=== PATIENT | male | born 1970 | race Caucasian/White ===

== ENCOUNTER 2018-02-14 15:11 | Inpatient (IN) | payer OTHER ==
[2018-02-14 15:46] LABS: Basophils # (Auto) 0.1 K/mm3 (0.0-0.1); Basophils % (Auto) 0.9 % (0.0-1.8); Eosinophils # (Auto) 0.2 K/mm3 (0.0-0.4); Eosinophils % (Auto) 2.7 % (0.0-4.3); Hematocrit 44.8 % (35.5-45.6); Hemoglobin 15.4 gm/dl (11.8-15.2); Lymphocytes % (Auto) 44.3 % (13.4-35.0); Mean Corpuscular HGB Conc 34 % (32-34); Mean Corpuscular Hemoglobin 31 pg (28-32); Mean Corpuscular Volume 89 fl (84-94); Monocytes # (Auto) 0.6 K/mm3 (0.0-0.8); Monocytes % (Auto) 6.2 % (0.0-7.3); Platelet Count 244 K/mm3 (140-440); Red Blood Count 5.01 M/mm3 (3.65-5.03); Red Cell Distribution Width 13.5 % (13.2-15.2)
[2018-02-14 15:52] LABS: INR 0.8 (0.87-1.13)
[2018-02-14 15:53] LABS: Partial Thromboplastin Time 25.3 Sec. (24.2-36.6)
[2018-02-14 16:03] LABS: BUN/Creatinine Ratio 20; Blood Urea Nitrogen 12 mg/dL (9-20); Calcium 9.4 mg/dL (8.4-10.2); Hemolysis Index 9
--- NOTE | 2018-02-14 17:06 | Cat Scan Report ---
FINAL REPORT EXAM: CT HEAD/BRAIN WO CON HISTORY: neuro deficits < 6hrs or sx present upon awakening TECHNIQUE: CT examination of the head without IV contrast PRIORS: Brain MRI 11/16/[address] 11/15/2015 FINDINGS: Stable chronic infarcts bilateral occipital lobes posteriorly and medially. These are again associated with encephalomalacia and volume loss in the occipital lobes. No acute air-fluid level visualized in the included air-filled sinuses. Bone windows demonstrate no acute fracture. The brain is without mass, mass effect, hemorrhage, or acute infarct. There is no extra-axial intracranial bleed, brain bleed, or midline shift. The ventricles and sulci are age-appropriate. IMPRESSION: No acute CVA, intracranial bleed, or brain mass Stable chronic infarcts bilateral occipital lobe
--- NOTE | 2018-02-14 22:34 | Emergency Department Report ---
HPI - General Chief Complaint: Neuro Symptoms/Deficit Time Seen by Provider: 02/14/18 22:22 - HPI HPI: Room 24 The patient is a 47-year-old male presented with a chief complaint of left upper extremity weakness. The patient states today at approximately noon began feeling dizzy and had nausea vomiting and headache and intermittent weakness/ paralysis of the left upper extremity. Patient denies numbness, dysarthria or dysphagia. Patient states headache resolved at approximately 18:00. Patient states symptoms felt similar to his previous CVA 3 years ago. The patient states the only antiplatelet medication he takes is aspirin Location: [See above] Duration: [See above] Quality: Weakness Severity: Moderate Modifying factors: [see above] Context: [see above] Mode of transportation: [not driving] ED Past Medical Hx - Past Medical History Hx Hypertension: Yes Hx CVA: Yes Hx Diabetes: Yes (insulin-dependent) Additional medical history: high chol - Surgical History Past Surgical History?: No - Family History Family history: no significant - Social History Smoking Status: Never Smoker Substance Use Type: None - Medications Home Medications: Home Medications Medication Instructions Recorded Confirmed Last Taken Type Aspirin [Aspirin BABY CHEW TAB] 81 mg PO QDAY 11/16/15 11/16/15 11/15/15 History Insulin NPH/Regular [NovoLIN 70/30] 52 unit SQ QPM 11/16/15 11/16/15 11/15/15 History Insulin NPH/Regular [NovoLIN 70/30] 58 unit SQ QAM 11/16/15 11/16/15 11/15/15 History Lisinopril [Zestril TAB] 20 mg PO QDAY 11/16/15 11/16/15 11/15/15 History Metformin HCl [Glucophage] 1,000 mg PO BID 11/16/15 11/16/15 11/15/15 History Pravastatin Sodium [Pravastatin] 10 mg PO QHS 11/16/15 11/16/15 11/15/15 History predniSONE [Deltasone] 60 mg PO QDAY 6 Days tablet 11/17/15 Unknown Rx ED Review of Systems ROS: Stated complaint: SIGNS OF STROKE/PAIN Other details as noted in HPI Constitutional: denies: fever Eyes: denies: eye pain ENT: denies: throat pain Cardiovascular: denies: chest pain Endocrine: denies: unexplained weight loss Gastrointestinal: denies: abdominal pain Genitourinary: denies: dysuria Musculoskeletal: denies: back pain Skin: denies: change in color Neurological: headache, weakness. denies: paresthesias Physical Exam - Physical Exam Vital Signs: Vital Signs 02/14/18 02/14/18 15:18 21:00 Temperature 97.7 F Pulse Rate 81 Respiratory 16 Rate Blood Pressure 137/86 125/79 O2 Sat by Pulse 96 Oximetry Physical Exam: GENERAL: The patient is well-developed well-nourished male lying on stretcher not appearing to be in acute distress. [] HEENT: Normocephalic. Atraumatic. Extraocular motions are intact. Patient has moist mucous membranes. NECK: Supple. Trachea midline CHEST/LUNGS: Clear to auscultation. There is no respiratory distress noted. HEART/CARDIOVASCULAR: Regular. There is no tachycardia. There is no gallop rub or murmur. ABDOMEN: Abdomen is soft, nontender. Patient has normal bowel sounds. There is no abdominal distention. SKIN: There is no rash. There is no edema. There is no diaphoresis. NEURO: The patient is awake, alert, and oriented. The patient is cooperative. The patient has no focal neurologic deficits. The patient has normal speech. Cranial nerves II through XII grossly intact, no drift. Education Department Registrar 5+/5 bilaterally MUSCULOSKELETAL: There is no evidence of acute injury. NIHSS= 0 LOC a. Alert= 0 Not alert but arousable to minor stimuli=1 Not alert requires repeated or strong stimuli to move= 2 Responds only reflex motor or unresponsive=3 b. asks month and age answers both correctly= 0 answers one correctly= 1 answers neither correctly= 2 Best Gaze normal= 0 abnormal in one or both but forced deviation or total paresis absent= 1 forced deviation or total gaze paresis= 2 Visual no visual loss= 0 partial hemianopia= 1 complete hemianopia= 2 bilateral hemianopia= 3 Facial Palsy normal= 0 minor paralysis= 1 partial paralysis= 2 complete paralysis= 3 Motor Arm no drift= 0 drift before 10 secs but doesnt hit bed= 1 some effort against gravity= 2 no effort against gravity= 3 no movement= 4 Motor leg no drift= 0 drift before 5 secs but doesnt hit bed= 1 drifts to bed before 5 secs= 2 no effort against gravity= 3 no movement= 4 Limb ataxia absent=0 present in one limb= 1 present in two limbs= 2 Sensory normal= 0 mild sensory loss= 1 severe (unaware of being touched)= 2 Best language mild/some loss of fluency= 1 severe= 2 mute= 3 Dysarthria normal= 0 slurs some words= 1 severe/unintelligible= 2 Extinction and Inattention no abnormality= 0 visual, tactile, auditory or personal inattention= 1 profound (doesnt recognize own hand or orients to only one side= 2 ED Course Vital Signs 02/14/18 02/14/18 15:18 21:00 Temperature 97.7 F Pulse Rate 81 Respiratory 16 Rate Blood Pressure 137/86 125/79 O2 Sat by Pulse 96 Oximetry ED Medical Decision Making - Lab Data Result diagrams: 02/14/18 15:25 02/14/18 15:25 Laboratory Tests 02/14/18 02/14/18 02/14/18 15:20 15:25 15:25 WBC 9.1 RBC 5.01 Hgb 15.4 H Hct 44.8 MCV 89 MCH 31 MCHC 34 RDW 13.5 Plt Count 244 Lymph % (Auto) 44.3 H [place] % (Auto) 6.2 Eos % (Auto) 2.7 Baso % (Auto) 0.9 Lymph # 4.0 [place] # 0.6 Eos # 0.2 Baso # 0.1 Seg Neutrophils % 45.9 Seg Neutrophils # 4.2 PT 11.5 L INR 0.80 L APTT 25.3 Thrombin Time Sodium Potassium Chloride Carbon Dioxide Anion Gap BUN Creatinine Estimated GFR BUN/Creatinine Ratio Glucose POC Glucose 137 H Calcium Troponin T 02/14/18 02/14/18 15:25 15:25 WBC RBC Hgb Hct MCV MCH MCHC RDW Plt Count Lymph % (Auto) [place] % (Auto) Eos % (Auto) Baso % (Auto) Lymph # [place] # Eos # Baso # Seg Neutrophils % Seg Neutrophils # PT INR APTT Thrombin Time 17.8 Sodium 134 L Potassium 4.1 Chloride 97.9 L Carbon Dioxide 24 Anion Gap 16 BUN 12 Creatinine 0.6 L Estimated GFR > 60 BUN/Creatinine Ratio 20 Glucose 128 H POC Glucose Calcium 9.4 Troponin T < 0.010 - EKG Data -: EKG Interpreted by Nm EKG shows normal: sinus rhythm Rate: normal (86 bpm) - Radiology Data Radiology results: report reviewed (CT head), image reviewed (CT head) [facility] [address] [place] [address] Cat Scan Report Signed Patient: NICO FLYNN MR#: [id number] : 1970 Acct:[id number] Age/Sex: 47 / M ADM Date: 02/14/18 Loc: ED Attending Dr: Ordering Physician: VIRGIE SHERMAN MD Date of Service: 02/14/18 Procedure(s): CT head/brain wo con Accession Number(s): [id number] cc: ED MD WHIT FINAL REPORT EXAM: CT HEAD/BRAIN WO CON HISTORY: neuro deficits lt; 6hrs or sx present upon awakening TECHNIQUE: CT examination of the head without IV contrast PRIORS: Brain MRI 11/16/[address] 11/15/2015 FINDINGS: Stable chronic infarcts bilateral occipital lobes posteriorly and medially. These are again associated with encephalomalacia and volume loss in the occipital lobes. No acute air-fluid level visualized in the included air-filled sinuses. Bone windows demonstrate no acute fracture. The brain is without mass, mass effect, hemorrhage, or acute infarct. There is no extra-axial intracranial bleed, brain bleed, or midline shift. The ventricles and sulci are age-appropriate. IMPRESSION: No acute CVA, intracranial bleed, or brain mass Stable chronic infarcts bilateral occipital lobe Transcribed By: TORO Dictated By: AMMY CULLEN MD Electronically Authenticated By: AMMY CULLEN MD Signed Date/Time: 02/14/181700 DD/ 00 TD/TT: 02/14/181700 - Differential Diagnosis TIA Critical care attestation.: If time is entered above; I have spent that time in minutes in the direct care of this critically ill patient, excluding procedure time. ED Disposition Clinical Impression: TIA (transient ischemic attack) Disposition: OP ADMIT IP TO THIS HOSP Is pt being admited?: Yes Does the pt Need Aspirin: Yes Condition: Fair Referrals: PRIMARY CARE, [Primary Care Provider] - 3-5 Days Time of Disposition: 22:47 (hospitalist paged (Dr Chance))
[2018-02-14] MEDS ORDERED: ASPIRIN PO ONE (22:47)
[2018-02-15] MEDS ORDERED: SODIUM CHLORIDE FLUSH SYRINGE 10 ML IV PRN (00:56)
[2018-02-15] MEDS ORDERED: APRESOLINE IV PRN (00:56)
[2018-02-15] MEDS ORDERED: D50W (25GM) Syringe IV PRN (01:02)
--- NOTE | 2018-02-15 01:46 | History and Physical Report ---
History of Present Illness Date of examination: 02/15/18 Date of admission: 02/15/18 Chief complaint: Left arm weakness History of present illness: Patient is a 47 year old male with history of stroke, who presented to the ED on account of left arm weakness. Patient stated that when he woke up this morning and checked his blood sugar, it was elevated at 244. At that time , he gave himself insulin which did not improve his blood sugar. Subsequently, he started experiencing nausea without vomiting, dizziness, headaches, and blurry vision. In addition, he had left arm weakness lasting a few minutes 2 episodes. He denies slurred speech. No chest pain, shortness of breath, palpitations, cough or fever. No abdomen pain, constipation or diarrhea. No syncope or loss of consciousness. Past History Past Medical History: diabetes, hypertension, hyperlipidemia, stroke Past Surgical History: No surgical history Social history: no significant social history (he denies tobacco, alcohol or illicit drug use) Family history: diabetes, hypertension, stroke Medications and Allergies Allergies Allergy/AdvReac Type Severity Reaction Status Date / Time No Known Allergies Allergy Verified 11/14/14 11:55 Home Medications Medication Instructions Recorded Confirmed Last Taken Type Aspirin [Aspirin BABY CHEW TAB] 81 mg PO QDAY 11/16/15 11/16/15 11/15/15 History Insulin NPH/Regular [NovoLIN 70/30] 52 unit SQ QPM 11/16/15 11/16/15 11/15/15 History Insulin NPH/Regular [NovoLIN 70/30] 58 unit SQ QAM 11/16/15 11/16/15 11/15/15 History Lisinopril [Zestril TAB] 20 mg PO QDAY 11/16/15 11/16/15 11/15/15 History Metformin HCl [Glucophage] 1,000 mg PO BID 11/16/15 11/16/15 11/15/15 History Pravastatin Sodium [Pravastatin] 10 mg PO QHS 11/16/15 11/16/15 11/15/15 History predniSONE [Deltasone] 60 mg PO QDAY 6 Days tablet 11/17/15 Unknown Rx Active Meds: Active Medications Aspirin (Aspirin) 325 mg PO QDAY [facility] Atorvastatin Calcium (Lipitor) 40 mg PO QHS [facility] Dextrose (D50w (25gm) Syringe) 50 ml IV PRN PRN PRN Reason: Hypoglycemia Hydralazine HCl (Apresoline) 10 mg IV Q6H PRN PRN Reason: Keep SBP between 160-185 mm Hg Sodium Chloride (Nacl 0.9% 1000 Ml) 1,000 mls @ 75 mls/hr IV DIRECT KATHY Insulin Glargine (Lantus) 10 units SUB-Q QHS KATHY Insulin Human Lispro (Humalog) 0 unit SUB-Q ACHS KATHY; Protocol Sodium Chloride (Sodium Chloride Flush Syringe 10 Ml) 10 ml IV PRN PRN PRN Reason: LINE FLUSH Review of Systems All systems: negative (except as documented in the HPI, all other systems were reviewed and negative.) Exam - Constitutional Vitals: Temp Pulse Resp BP Pulse Ox 97.7 F 81 16 120/74 95 02/14/18 15:18 02/14/18 15:18 02/14/18 15:18 02/14/18 23:45 02/14/18 23:45 General appearance: Present: no acute distress - EENT Eyes: Present: PERRL, EOM intact ENT: hearing intact, clear oral mucosa - Neck Neck: Present: supple - Respiratory Respiratory effort: normal Respiratory: bilateral: CTA - Cardiovascular Rhythm: regular Heart Sounds: Present: S1 & S2 - Extremities Extremities: No edema Peripheral Pulses: within normal limits - Abdominal General gastrointestinal: Present: soft, non-tender, normal bowel sounds - Integumentary Integumentary: Present: clear, warm, dry - Musculoskeletal Musculoskeletal: strength equal bilaterally - Neurologic Neurologic: CNII-XII intact, other (alert and oriented 3) Results - Labs CBC & Chem 7: 02/14/18 15:25 02/14/18 15:25 Labs: Laboratory Last Values WBC 9.1 K/mm3 (4.5-11.0) 02/14/18 15:25 RBC 5.01 M/mm3 (3.65-5.03) 02/14/18 15:25 Hgb 15.4 gm/dl (11.8-15.2) H 02/14/18 15:25 Hct 44.8 % (35.5-45.6) 02/14/18 15:25 MCV 89 fl (84-94) 02/14/18 15:25 MCH 31 pg (28-32) 02/14/18 15:25 MCHC 34 % (32-34) 02/14/18 15:25 RDW 13.5 % (13.2-15.2) 02/14/18 15:25 Plt Count 244 K/mm3 (140-440) 02/14/18 15:25 Lymph % (Auto) 44.3 % (13.4-35.0) H 02/14/18 15:25 [place] % (Auto) 6.2 % (0.0-7.3) 02/14/18 15:25 Eos % (Auto) 2.7 % (0.0-4.3) 02/14/18 15:25 Baso % (Auto) 0.9 % (0.0-1.8) 02/14/18 15:25 Lymph # 4.0 K/mm3 (1.2-5.4) 02/14/18 15:25 [place] # 0.6 K/mm3 (0.0-0.8) 02/14/18 15:25 Eos # 0.2 K/mm3 (0.0-0.4) 02/14/18 15:25 Baso # 0.1 K/mm3 (0.0-0.1) 02/14/18 15:25 Seg Neutrophils % 45.9 % (40.0-70.0) 02/14/18 15:25 Seg Neutrophils # 4.2 K/mm3 (1.8-7.7) 02/14/18 15:25 PT 11.5 Sec. (12.2-14.9) L 02/14/18 15:25 INR 0.80 (0.87-1.13) L 02/14/18 15:25 APTT 25.3 Sec. (24.2-36.6) 02/14/18 15:25 Thrombin Time 17.8 Sec. (15.1-19.6) 02/14/18 15:25 Sodium 134 mmol/L (137-145) L 02/14/18 15:25 Potassium 4.1 mmol/L (3.6-5.0) 02/14/18 15:25 Chloride 97.9 mmol/L (98-107) L 02/14/18 15:25 Carbon Dioxide 24 mmol/L (22-30) 02/14/18 15:25 Anion Gap 16 mmol/L 02/14/18 15:25 BUN 12 mg/dL (9-20) 02/14/18 15:25 Creatinine 0.6 mg/dL (0.8-1.5) L 02/14/18 15:25 Estimated GFR > 60 ml/min 02/14/18 15:25 BUN/Creatinine Ratio 20 % 02/14/18 15:25 Glucose 128 mg/dL (75-100) H 02/14/18 15:25 POC Glucose 137 (70-105) H 02/14/18 15:20 Calcium 9.4 mg/dL (8.4-10.2) 02/14/18 15:25 Troponin T < 0.010 ng/mL (0.00-0.029) 02/14/18 15:25 Assessment and Plan Assessment and plan: TIA, rule out acute stroke. -Placed on stroke protocol -CT head negative for acute findings -Further evaluation with MRI brain, echocardiogram and carotid Doppler ultrasound Hypertension, stable -Resume home antihypertensive IDDM2 -Placed on both basal and prandial insulin regimen -Follow up hemoglobin A1c level Hyperlipidemia -Continue statin Mild hyponatremia -Will place patient on IV fluid and monitor sodium level Prophylaxis -DVT prophylaxis with SCD 38 minutes spent coordinating care
[2018-02-15] MEDS: NACL 0.9% 1000 ML 1,000 ML IV SCH ×2 (04:37→21:54)
[2018-02-15 08:11] LABS: BUN/Creatinine Ratio 17; Blood Urea Nitrogen 10 mg/dL (9-20); Calcium 8.8 mg/dL (8.4-10.2); Hemolysis Index 4
[2018-02-15] MEDS: HumaLOG SUB-Q SCH ×4 (09:02→22:41)
[2018-02-15] MEDS: ASPIRIN PO SCH (10:15)
--- NOTE | 2018-02-15 13:42 | Event Note ---
Date: 02/15/18 Patient was seen and evaluated this morning, H&P, labs and imaging were reviewed. Patient was admitted for TIA. Workup is in progress. PT OT ordered. Pravastatin is sensitive to Lipitor, Plavix is added on his aspirin regimen. Continue management per H&P.
--- NOTE | 2018-02-15 14:44 | Magnetic Resonance Report ---
MRI OF THE BRAIN WITHOUT CONTRAST: HISTORY: Stroke PROCEDURE: Multiplanar, multisequence MR imaging of the brain without IV contrast was performed. FINDINGS: Compared to the CT head without contrast dated 02/14/18. There is no evidence for diffusion restriction, hemorrhage or mass. A chronic right occipital infarct measures 2.9 x 1.8 cm. A smaller chronic left occipital infarct measures 1.5 x 1.6 cm. A left cerebellar chronic infarct measures 1.9 x 1.6 cm. There are 2 or 3 millimetric chronic infarcts in the right cerebellar hemisphere. A 1.5 x 0.8 cm chronic infarct is identified in the cerebellar vermis. Mild diffuse cortical volume loss and minimal nonspecific chronic white matter changes are identified. The remaining brain parenchyma is within normal limits. The midline structures are central. The basal cisterns are patent. Normal ventricular size. The orbital cavities and sella turcica demonstrate no abnormality. The visualized paranasal sinuses and mastoid air cells are well aerated. IMPRESSION: No acute intracranial process is identified. Multiple chronic infarcts in the posterior circulation as described above.
[2018-02-15] MEDS: PLAVIX PO SCH (15:41)
[2018-02-15] MEDS ORDERED: LANTUS SUB-Q SCH (22:00)
[2018-02-16 06:52] LABS: Chol/HDL Ratio 5.15 %
[2018-02-16] MEDS: HumaLOG SUB-Q SCH ×2 (08:08→13:22)
[2018-02-16] MEDS: NACL 0.9% 1000 ML 1,000 ML IV SCH (09:56)
[2018-02-16] MEDS: PLAVIX PO SCH (09:56)
[2018-02-16] MEDS: ASPIRIN PO SCH (09:56)
--- NOTE | 2018-02-16 11:54 | Discharge Summary ---
Providers - Providers Date of Admission: 02/15/18 01:38 Attending physician: BETITO REED MD 02/15/18 00:57 Occupational Therapy Evaluate and Treat [CONS] Routine Comment: Reason For Exam: Neuro deficits Physical Therapy Evaluation and Treat [CONS] Routine Comment: Reason For Exam: Neuro deficits 02/16/18 08:34 Consult to Physician [CONS] Routine Comment: Consulting Provider: DEBBY SOSA Physician Instructions: Reason For Exam: CVA, patent formen ovale Primary care physician: PLASTICATOR Hospitalization Reason for admission: TIA Condition: Fair Pertinent studies: MRI head No acute intracranial process is identified. Multiple chronic infarcts in the posterior circulation as described above. Echo - Patent foramen ovale with right to left shunt - EF of 50-55%, no thrombus Hospital course: Patient is a 47 year old male with history of stroke, who presented to the ED on account of left arm weakness. Patient stated that when he woke up this morning and checked his blood sugar, it was elevated at 244. At that time , he gave himself insulin which did not improve his blood sugar. Subsequently, he started experiencing nausea without vomiting, dizziness, headaches, and blurry vision. In addition, he had left arm weakness lasting a few minutes 2 episodes. He denies slurred speech. No chest pain, shortness of breath, palpitations, cough or fever. No abdomen pain, constipation or diarrhea. No syncope or loss of consciousness. Patient was admitted to the floor for stroke workup and was negative. patient likely have TIA. I changed pravastatin to lipitor, add plavix on his medication regimen. Cardiology was consulted and will follow the patent foramen ovale in the clinic. Patient was hemodynamically stable at the time of discharge. She discharged home in a stable condition. Disposition: DC-01 TO HOME OR SELFCARE Time spent for discharge: 31 minutes - Discharge Diagnoses (1) TIA (transient ischemic attack) Status: Acute (2) CVA (cerebral vascular accident) Status: Chronic Qualifiers: CVA mechanism: unspecified Qualified Code(s): I63.9 - Cerebral infarction, unspecified (3) Diabetes mellitus, type 2 Status: Chronic (4) Hypertension Status: Chronic Core Measure Documentation - Palliative Care Palliative Care/ Comfort Measures: Not Applicable - Core Measures Any of the following diagnoses?: none - Stroke Discharge Requirements Statin for LDL = or >70 mg/dl on DC: Yes Anticoag for atrial fib/atrial flutter: Not Applicable Antithrombotic for ischemic stroke: Yes Exam - Physical Exam Narrative exam: Not in cardiopulmonary distress. The patient is obese. Vital signs as documented. Head exam is unremarkable. No scleral icterus . Neck is without jugular venous distension, thyromegaly, or carotid bruits. Lungs are clear to auscultation. Cardiac exam reveals regular rate and Rhythm. First and second heart sounds normal. No murmurs, rubs or gallops. Abdominal exam reveals normal bowel sounds, no masses, no organomegaly and no aortic enlargement. Extremities are nonedematous and both femoral and pedal pulses are normal. CONTROL PANEL OPERATOR CRUDE UNIT: Alert and oriented 3. No focal weakness. - Constitutional Vitals: Temp Pulse Resp BP Pulse Ox 98.4 F 67 18 109/59 93 02/16/18 05:33 02/16/18 05:33 02/16/18 05:33 02/16/18 05:33 02/16/18 05:33 Plan Activity: no restrictions Weight Bearing Status: Full Weight Bearing Diet: low cholesterol, low salt, diabetic Additional Instructions: Follow up at [facility] in 1-2 weeks Follow up with: PRIMARY MD ANTONY [Primary Care Provider] - 3-5 Days ANGE SNOW MD [Staff Physician] - 14 Days (Patent foramen ovale ) Prescriptions: AtorvaSTATin [Lipitor] 40 mg PO QHS #30 tablet Clopidogrel [Plavix] 75 mg PO QDAY #30 tablet
[2018-02-16 13:06] VITALS: BP 136/86
--- NOTE | 2018-02-16 13:10 | Event Note ---
Date: 02/16/18 TIA PFO with predominantly (L) to right shunt. Old Occipital CVA in 2016. Plan: ASA 81 mg/day and Plavix 75 mg/ day. Office follow up. Full note dictated. .
--- NOTE | 2018-02-16 22:17 | Consultation ---
REASON FOR CONSULTATION: Consult requested for TIA. HISTORY OF PRESENT ILLNESS: This 47-year-old patient known to have diabetes mellitus more than 20 years along with hypertension and hyperlipidemia, has history of CVA in 2014 requiring TPA. At that time, he was noted to have occipital infarct. He had echocardiogram and transesophageal echocardiogram done then which did not reveal any intracardiac source of emboli. Subsequently, he was admitted again in 10/2015 for symptoms of TIA. 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 I think the [facility] Neurology division was consulted on telephone by ER doctor then. At this time, the patient has had 2 episodes of weakness of the left arm, lasting for about 2 minutes. The patient had MRI of the brain, which did not reveal any acute process. He was noted to have multiple chronic infarcts in the posterior circulation. Echocardiogram was done on 02/15/2018. This revealed patent foramen ovale with predominant [id number] shunting. No evidence of valvular heart disease. Left ventricular size and function was normal with EF of 55%. SOCIAL HISTORY: The patient is . His is at bedside. He does not smoke, does not take any alcohol. MEDICATIONS AT HOME: Include aspirin 325 mg a day, atorvastatin 40 mg a day, he does take metformin 500 b.i.d. and insulin. REVIEW OF SYSTEMS: No history of thyroid disease. No history of heart failure. No history of myocardial infarction. No history of arrhythmias, atrial fibrillation, or congestive heart failure. No history of kidney disease. PHYSICAL EXAMINATION: VITAL SIGNS: Pulse 70 per minute, blood pressure 130/80. GENERAL: The patient is alert, oriented to time, place, and person. NECK: No JVD elevation, no bruits noted. HEART: PMI within fifth intercostal space, normal in character. CARDIOVASCULAR: S1, S2 normal. No murmurs audible. No gallops. CHEST: Lungs are clear. ABDOMEN: Soft, nontender. Liver and spleen not palpable. EXTREMITIES: No edema. Good pulses. CENTRAL NERVOUS SYSTEM: The patient is alert, oriented to time, place, and person. No evidence of any weakness of the arm, legs normal. LABORATORY DATA: His cholesterol is 165, LDL is 121, HDL of 32. Hemoglobin A1c is 9.1. Hemoglobin is 16.2 grams percent. MCV is normal. His protime is normal. IMAGING DATA: EKG sinus rhythm within normal limits. DIAGNOSES: 1. Transient ischemic attack, possibly due to patent foramen ovale. 2. History of occipital cerebrovascular accident in 2015 requiring TPA. 3. History of Flores's palsy in 2016. 4. Diabetes mellitus type 2, not well controlled. 5. Hyperlipidemia, not well controlled. 6. Hypertension, fairly well controlled. DISCUSSION: I agree with Plavix and aspirin in addition to his home medications. If he gets further TIA episodes then consider PFO closure. The patient was advised to come to the office for followup. JOB# [id number] DEJUAN/BLADIMIR
== END 2018-02-16 14:59 | disposition home or self-care (01) | DRG 69 ==
LOC: ED 15:11 → 3A 02-15 01:38
PROVIDERS: ADMIT Internal Medicine; ATTEND Internal Medicine
DX: G45.9 Transient cerebral ischemic attack, unspecified (principal); E87.1 Hypo-osmolality and hyponatremia; Q21.1 Atrial septal defect; E78.5 Hyperlipidemia, unspecified; E11.9 Type 2 diabetes mellitus without complications; I10 Essential (primary) hypertension; Z79.4 Long term (current) use of insulin; Z86.73 Personal history of transient ischemic attack (TIA), and cerebral infarction without residual deficits; Z79.82 Long term (current) use of aspirin; Z79.899 Other long term (current) drug therapy; Z82.3 Family history of stroke; Z83.3 Family history of diabetes mellitus; Z82.49 Family history of ischemic heart disease and other diseases of the circulatory system
CPT/HCPCS: 36415; 70450; 70551; 80048; 80061; 82962; 83036; 84484; 85025; 85610; 85670; 85730; 93005; 93010; 93306; 93880; A9270-GY; J1815; J7030